=== PATIENT | female | born 1945 | race Caucasian/White ===

== ENCOUNTER 2020-01-15 01:56 | Emergency (ER) | payer MEDICARE ==
[~2020-01-15] VITALS: Ht 165.1 cm; Wt 77.1 kg
[2020-01-15 02:02] VITALS: BP_SYST 150
--- NOTE | 2020-01-15 02:10 | NUR ---
Placed in room 07 . 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 To gown for exam. Side rails up.
--- NOTE | 2020-01-15 02:11 | NUR ---
Pt AAOx4 presents to ED via ALS from a nearby hotel for difficulty breathing x ~4 hours. Denies n/v/d/abd pain/chest pain. Pt reports she has history of PE last year. Skin pink dry and warm. Will continue to monitor.
--- NOTE | 2020-01-15 02:12 | NUR ---
ER Dr. Orta at bedside examining patient.
[2020-01-15] MEDS ORDERED: IPRATROPIUM/ALBUTEROL SULFATE 3 ML AMPUL.NEB (DUONEB) INH ONE (02:15)
--- NOTE | 2020-01-15 02:20 | NUR ---
RT at bedside for breathing tx
[2020-01-15 02:46] LABS: BASOPHILS # (AUTO) 0.1 K/uL (0.0-0.2); BASOPHILS % (AUTO) 1.1 % (0.0-2.0); EOSINOPHILS # (AUTO) 0.3 K/uL (0.0-0.4); EOSINOPHILS % (AUTO) 3.1 % (0.0-4.0); HEMATOCRIT 45.3 % (36-48); HEMOGLOBIN 14.9 g/dL (12.0-16.0); LYMPHOCYTES # (AUTO) 1.9 K/uL (1.0-5.5); LYMPHOCYTES % (AUTO) 23.4 % (20.5-51.5); MEAN CORPUSCULAR HEMOGLOBIN 30 pg (27-31); MEAN CORPUSCULAR HGB CONC 33 % (32-36); MEAN CORPUSCULAR VOLUME 92 fL (79.0-98.0); MONOCYTES # (AUTO) 0.9 K/uL (0.0-1.0); MONOCYTES % (AUTO) 10.8 % (1.7-9.3); NEUTROPHILS # (AUTO) 5.1 K/uL (1.8-7.7); NEUTROPHILS % (AUTO) 61.6 % (40.0-70.0); PLATELET COUNT (AUTO) 174 K/uL (130-430); RED CELL DISTRIBUTION WIDTH 13.2 % (9.0-15.0); WHITE BLOOD COUNT (AUTO) 8.3 K/uL (4.8-10.8)
[2020-01-15 02:55] LABS: INR 1.3 (0.8-1.2); PROTHROMBIN TIME 13.4 SECS (9.5-12.5)
[2020-01-15 03:05] LABS: ANION GAP 7 (5-15); CALCIUM 8.8 mg/dL (8.4-11.0); CHLORIDE 106 mmol/L (98-107); CREATININE 0.79 mg/dL (0.55-1.30); GLUCOSE 121 mg/dL (70-99); POTASSIUM 3.9 mmol/L (3.5-5.1); SODIUM SERUM 142 mmol/L (136-145); UREA NITROGEN, BLOOD 17 mg/dL (8-21)
[2020-01-15 03:11] LABS: ALANINE AMINOTRANSFERASE 19 U/L (12-78); ALBUMIN 3.1 g/dL (3.4-4.8); ASPARTATE AMINOTRANSFERASE 12 U/L (10-37); TOTAL BILIRUBIN 0.5 mg/dL (0.0-1.0)
[2020-01-15] MEDS ORDERED: methylPREDNISolone SOD SUCC/PF 62.5 MG/ML VIAL IVP ONE (03:30)
--- NOTE | 2020-01-15 03:30 | NUR ---
Report received from [facility] to endorse all care.
--- NOTE | 2020-01-15 03:40 | NUR ---
Note undone in EDM - 01/15/20 at 0621 by VILMA # 20 gauge angiocath placed to L wrist. Use of asceptic technique. Opsite placed over site. Blood return noted. Flushed with 10 cc of normal saline. No evidence of infiltration noted. Patient tolerated well.
--- NOTE | 2020-01-15 03:40 | NUR ---
# 22 gauge angiocath placed to L wrist. Use of asceptic technique. Opsite placed over site. Blood return noted. Flushed with 10 cc of normal saline. No evidence of infiltration noted. Patient tolerated well.
[2020-01-15] MEDS ORDERED: hydrALAZINE HCL 20 MG/ML VIAL IVP ONE (03:45)
--- NOTE | 2020-01-15 03:50 | NUR ---
Pt medicated per MD orders.
--- NOTE | 2020-01-15 03:59 | NUR ---
Titrated pt from 4L nasal cannula to 2L nasal cannula. Pt tolerated well. Pt oxygen saturation 95%. Will continue to monitor.
--- NOTE | 2020-01-15 04:12 | NUR ---
Per MD Orta, hold off on giving hydralizine until further instructed.
[2020-01-15] MEDS ORDERED: IPRATROPIUM BROM 0.5 MG/2.5 ML VIAL.NEB (ATROVENT) INH ONE (04:15)
--- NOTE | 2020-01-15 04:18 | NUR ---
RT at bedside administering breathing treatment.
--- NOTE | 2020-01-15 05:06 | NUR ---
RT at bedside performing ABG withdrawal.
--- NOTE | 2020-01-15 06:13 | NUR ---
ER Dr. Orta at bedside examining patient.
--- NOTE | 2020-01-15 06:30 | NUR ---
MD Orta speaking to MD Cardoso from [facility].
[2020-01-15] MEDS ORDERED: hydrALAZINE HCL 20 MG/ML VIAL ONE (06:57)
--- NOTE | 2020-01-15 07:13 | NUR ---
Report given to HE Dalton to endorse all care.
--- NOTE | 2020-01-15 07:20 | NUR ---
report received from Macrina CUTLER. Currently awaitng transfer to ER
--- NOTE | 2020-01-15 08:02 | NUR ---
Patient to be transferred to [facility] ER. Is being transferred due to higher level of care. Receiving facility has accepting physician and available space. ER physician has signed transfer form. Patient or responsible constitution party has agreed to transfer and signed form. Patient belongings inventoried and will be sent with patient. Copy of nursing notes, lab reports, EKG, Physicians Orders and X-rays to be sent with patient. Report called to Stephon at receiving facility. Receiving physician is Dr. Whitlock. [facility] ambulance service has been called for transfer. ETA is [id number].
[2020-01-15 08:32] VITALS: BP_SYST 167
== END 2020-01-15 08:02 | disposition short-term general hospital (02) ==
LOC: SED 01:56
DX: J44.1 Chronic obstructive pulmonary disease with (acute) exacerbation (principal); I48.91 Unspecified atrial fibrillation; I11.0 Hypertensive heart disease with heart failure; I50.9 Heart failure, unspecified; Z86.711 Personal history of pulmonary embolism
CPT/HCPCS: 36415; 36600; 71045; 80053; 82550; 82803; 83880; 84484; 85025; 85379; 85610; 93005; 94640; 96374; 96375; 99285; J0360; J2930